=== PATIENT | male | born 1995 | race Caucasian/White ===

== ENCOUNTER 2017-07-16 06:50 | Emergency (ER) | payer SELFPAY ==
[~2017-07-16] VITALS: Ht 175.3 cm; Wt 78.9 kg
[2017-07-16] MEDS ORDERED: PREDNISONE20 MG PO (08:03)
[2017-07-16] MEDS ORDERED: PROVENTIL HFA6.7 GM IH (08:03)
[2017-07-16 09:29] VITALS: BP 125/91
== END 2017-07-16 09:30 | disposition home or self-care (01) ==
LOC: EME 06:50
DX: J45.909 Unspecified asthma, uncomplicated (principal)
CPT/HCPCS: 71020; 94640; 99281; 99285; J7512